=== PATIENT | female | born 1965 | race African-American/Black ===

== ENCOUNTER 2021-08-12 11:25 | Emergency (ER) | payer OTHER ==
[~2021-08-12] VITALS: Ht 152.4 cm; Wt 70.3 kg
[~2021-08-12 11:25] MED LIST: BACTRIM DS TAB1 EACH PO; CALCIUM 500 +1 EAC6 PO; CIPRO500 MG PO; FISH OIL 1,0001 EAC5 PO; FLOMAX0.4 MG PO; MEDROLDOSEPACK PO; MULTIVITAMINS; MULTIVITAMINS1 EAC7 PO; NORCO 5-325 TA1 EACH PO; NORFLEX100 MG PO; PERCOCET 5-3251 EACH PO; ZOFRAN ODT4 MG PO
[2021-08-12 11:29] VITALS: BP 117/81
== END 2021-08-12 13:01 | disposition home or self-care (01) ==
LOC: ER 11:25
DX: S09.90XA Unspecified injury of head, initial encounter (principal); R07.89 Other chest pain; M54.5 Low back pain; Z79.899 Other long term (current) drug therapy; Y08.89XA Assault by other specified means, initial encounter; Y93.89 Activity, other specified; Y92.89 Other specified places as the place of occurrence of the external cause; Y99.8 Other external cause status